=== PATIENT | female | born 1995 | race Two or more races ===

== ENCOUNTER 2016-08-13 20:11 | Emergency (ER) | payer SELFPAY ==
--- NOTE | 2016-08-13 20:22 | ER Document Report ---
ED Medical Screen (RME) - General Stated Complaint: TOE INJURY Notes: patient with toe pain today, able to walk. stubbed it full rom, sensation intact Dp normal I have greeted and performed a rapid initial assessment of this patient. A comprehensive ED assessment and evaluation of the patient, analysis of test results and completion of the medical decision making process will be conducted by additional ED providers. TRAVEL OUTSIDE OF THE [place] IN LAST 30 DAYS: No - Related Data Allergies/Adverse Reactions: No Known Allergies Allergy (Unverified 08/13/16 20:20) Past Medical History - Immunizations Hx Diphtheria, Pertussis, Tetanus Vaccination: No
[2016-08-13] MEDS ORDERED: IBUPROFEN 800 MG TABLET PO ONE (20:23)
--- NOTE | 2016-08-13 22:17 | ER Document Report ---
ED Extremity Problem, Lower - General Chief Complaint: Toe Injury Stated Complaint: TOE INJURY Time seen by provider: 22:16 Mode of Arrival: Ambulatory Information source: Patient TRAVEL OUTSIDE OF THE [place] IN LAST 30 DAYS: No - HPI Patient complains to provider of: Injury Location: Great Toe Occurred: This afternoon Where: Home Onset/Duration: Sudden Quality of pain: Achy Severity: Mild Context: Stubbed Recent injury: Yes Associated symptoms: denies: Fever Exacerbated by: Movement, Walking Relieved by: Rest Notes: Patient states that she stubbed her left great toe on the corner of her ottoman at home earlier today. She states that the nail is purple and she now has pain to this area. She denies any numbness tingling or weakness. She states that it feels significantly better after the ibuprofen she was given in triage. She denies any redness. No fever. She denies any numbness tingling or weakness. She denies any other injuries. Physical complaints at this time. - Related Data Allergies/Adverse Reactions: No Known Allergies Allergy (Unverified 08/13/16 20:20) Past Medical History - Social History Smoking Status: Unknown if Ever Smoked Family History: Reviewed & Not Pertinent Patient has suicidal ideation: No Patient has homicidal ideation: No Renal/ Medical History: Denies: Hx Peritoneal Dialysis - Immunizations Hx Diphtheria, Pertussis, Tetanus Vaccination: No Review of Systems - Review of Systems -: Yes All other systems reviewed and negative Physical Exam - Vital signs Vitals: Temp Pulse Resp BP Pulse Ox 97.7 F 65 16 126/88 H 100 08/13/16 20:20 08/13/16 20:20 08/13/16 20:20 08/13/16 20:20 08/13/16 20:20 Interpretation: Normal - General General appearance: Appears well, Alert - HEENT Head: Normocephalic, Atraumatic Eyes: Normal Pupils: PERRL - Respiratory Respiratory status: No respiratory distress Chest status: Nontender Breath sounds: Normal Chest palpation: Normal - Cardiovascular Rhythm: Regular Heart sounds: Normal auscultation Murmur: No - Extremities General upper extremity: Normal inspection, Nontender, Normal color, Normal ROM , Normal temperature General lower extremity: Normal inspection, Normal color, Normal ROM, Normal temperature, Normal weight bearing, Other - Patient is noted to have a 90% subungual hematoma to the left great toenail. Tenderness to palpation of this area. She has full range of motion of the toe. No significant proximal foot tenderness to palpation. No deformity. No redness. Normal pulse and sensation. Normal capillary refill.. No: Saira's sign - Neurological Neuro grossly intact: Yes Cognition: Normal Orientation: AAOx4 Erick Coma Scale Eye Opening: Spontaneous Hinkle Coma Scale Verbal: Oriented Hinkle Coma Scale Motor: Obeys Commands Erick Coma Scale Total: 15 Speech: Normal Motor strength normal: LUE, RUE, LLE, RLE Sensory: Normal - Psychological Associated symptoms: Normal affect, Normal mood - Skin Skin Temperature: Warm Skin Moisture: Dry Skin Color: Normal Course - Re-evaluation Re-evalutation: 08/13/16 22:36 Patient stubbed her left great toe earlier today. She is noted to have a 90% subungual hematoma to the left great toenail. X-ray shows no fracture. The nail was trephinated and the blood was released from underneath the toenail. The patient tolerated this procedure well. Patient states she is feeling much better after her ibuprofen she was given in triage and declined the prescription for pain medication and go home with. Follow up for increased pain , fever, redness, any further concerns. The patient is noted to have elevated blood pressure during today's emergency department visit. The patient was informed of this finding. The patient was instructed that this may be related to pre-hypertension and requires further evaluation with a primary care provider. The patient has no hypertensive symptoms at this time. - Vital Signs Vital signs: Temp Pulse Resp BP Pulse Ox 97.7 F 65 16 126/88 H 100 08/13/16 20:20 08/13/16 20:20 08/13/16 20:20 08/13/16 20:20 08/13/16 20:20 Procedures - Nail Trephanation/Removal left great toenail Betadine prep applied: Yes Method of Drainage: Nail cauterized Sterile Dressing Applied: Yes Notes: 08/13/16 22:38 Patient tolerated procedure well with no immediate complications. Discharge - Discharge Clinical Impression: Subungual hematoma of great toe of left foot Qualifiers: Encounter type: initial encounter Qualified Code(s): S90.212A - Contusion of left great toe with damage to nail, initial encounter Condition: Stable Disposition: HOME, SELF-CARE Instructions: Subungual Hematoma ([facility]) Additional Instructions: Tylenol and Motrin as needed. Your toenail will likely fall off. Follow-up for increased pain, fever, redness, drainage, or any further concerns. Your blood pressure was elevated during today's visit. Have this rechecked with your doctor. Forms: Elevated Blood Pressure, Return to Work
[2016-08-13 22:44] VITALS: BP 120/80
== END 2016-08-13 22:44 | disposition home or self-care (01) ==
LOC: ER 20:11
PROC: 0H9RXZZ Drainage of Toe Nail, External Approach (ICD-10-PCS; principal; 2016-08-13)
DX: S90.212A Contusion of left great toe with damage to nail, initial encounter (principal); W22.03XA Walked into furniture, initial encounter; Y92.009 Unspecified place in unspecified non-institutional (private) residence as the place of occurrence of the external cause
CPT/HCPCS: 99283

== ENCOUNTER 2016-10-13 11:34 | Emergency (ER) | payer MEDICAID ==
--- NOTE | 2016-10-13 12:32 | ER Document Report ---
ED Medical Screen (RME) - General Chief Complaint: Vaginal Bleeding Stated Complaint: VAGINAL BLEEDING Notes: 21-year-old female about 9 weeks with onset about 11:30 this morning of some dark vaginal bleeding. This was preceded by some cramping in the vaginal rectal area. A1 I have greeted and performed a rapid initial assessment of this patient. A comprehensive ED assessment and evaluation of the patient, analysis of test results and completion of the medical decision making process will be conducted by additional ED providers. TRAVEL OUTSIDE OF THE [place] IN LAST 30 DAYS: No - Related Data Allergies/Adverse Reactions: No Known Allergies Allergy (Verified 10/13/16 11:39) Past Medical History Renal/ Medical History: Denies: Hx Peritoneal Dialysis - Immunizations Hx Diphtheria, Pertussis, Tetanus Vaccination: No Physical Exam - Vital signs Vitals: Temp Pulse Resp BP Pulse Ox 98.5 F 87 16 114/71 99 10/13/16 11:40 10/13/16 11:40 10/13/16 11:40 10/13/16 11:40 10/13/16 11:40 Course - Vital Signs Vital signs: Temp Pulse Resp BP Pulse Ox 98.5 F 87 16 114/71 99 10/13/16 11:40 10/13/16 11:40 10/13/16 11:40 10/13/16 11:40 10/13/16 11:40
[2016-10-13 13:02] LABS: ABSOLUTE EOSINOPHILS # (AUTO) 0.1 10^3/uL (0.0-0.6); ABSOLUTE LYMPHOCYTES (AUTO) 1.5 10^3/uL (0.5-4.7); ABSOLUTE MONOCYTES (AUTO) 0.6 10^3/uL (0.1-1.4); ABSOLUTE NEUT (AUTO) 5.5 10^3/uL (1.7-8.2); BASOPHILS % (AUTO) 0.3 % (0-2); EOSINOPHILS % (AUTO) 1.2 % (0-6); HEMOGLOBIN 11.2 g/dL (12.0-15.5); HGB HCT DIFFERENCE -0.4; MEAN CORPUSCULAR HEMOGLOBIN 25.7 pg (27.0-33.4); MEAN CORPUSCULAR VOLUME 78 fl (80-97); MONOCYTES % (AUTO) 7.2 % (3-13); RED BLOOD COUNT 4.37 10^6/uL (3.72-5.28); RED CELL DISTRIBUTION WIDTH 15.7 % (11.5-14.0); SEGMENTED NEUTROPHILS % (AUTO) 71.3 % (42-78); WHITE BLOOD COUNT 7.7 10^3/uL (4.0-10.5)
[2016-10-13 13:09] LABS: APPEARANCE,URINE SLIGHTLY-CLOUDY; BILIRUBIN,URINE NEGATIVE (NEGATIVE); GLUCOSE, URINE NEGATIVE (NEGATIVE); KETONES,URINE NEGATIVE (NEGATIVE); LEUKOCYTE ESTERASE,URINE TRACE (NEGATIVE); NITRITE,URINE NEGATIVE (NEGATIVE); PROTEIN,URINE NEGATIVE (NEGATIVE); URINE SPECIFIC GRAVITY 1.025; UROBILINOGEN,URINE NEGATIVE mg/dL (<2.0)
--- NOTE | 2016-10-13 15:09 | ER Document Report ---
ED GI/ - General Mode of Arrival: Ambulatory Information source: Patient TRAVEL OUTSIDE OF THE [place] IN LAST 30 DAYS: No - HPI Patient complains to provider of: , Vaginal bleeding Quality of pain: No pain Pain Level: 0 <TINO RAGLAND - Last Filed: 10/13/16 15:41> <ANGEL GIRALDO - Last Filed: 10/13/16 21:51> - General Chief Complaint: Vaginal Bleeding Stated Complaint: VAGINAL BLEEDING Notes: Patient is a 21-year-old female that presents to the emergency department today with complaints of vaginal bleeding. Patient states she is approximately 9 weeks , A1. Patient states that she is being followed by the health department for this , she has not yet been referred out. Patient states she has not had recent sexual intercourse. Patient is taking vitamins. Patient denies any abdominal cramping, urinary symptoms, vaginal discharge, or abdominal pain. (TINO RAGLAND) - Related Data Allergies/Adverse Reactions: No Known Allergies Allergy (Verified 10/13/16 11:39) Past Medical History - General Information source: Patient Last Menstrual Period: 08-17-16 - Social History Smoking Status: Never Smoker Cigarette use (# per day): No Frequency of alcohol use: None Drug Abuse: None Lives with: Family Family History: Reviewed & Not Pertinent Patient has suicidal ideation: No Patient has homicidal ideation: No Pulmonary Medical History: Reports: Hx Asthma Past Surgical History: Reports: Hx Appendectomy, Hx Myringotomy - Immunizations Hx Diphtheria, Pertussis, Tetanus Vaccination: No <TINO RAGLAND - Last Filed: 10/13/16 15:41> Review of Systems - Review of Systems Constitutional: No symptoms reported EENT: No symptoms reported Cardiovascular: No symptoms reported Respiratory: No symptoms reported Gastrointestinal: denies: Abdominal pain Genitourinary: No symptoms reported Female Genitourinary: See HPI, , Vaginal bleeding. denies: Vaginal discharge Musculoskeletal: No symptoms reported Skin: No symptoms reported Hematologic/Lymphatic: No symptoms reported Neurological/Psychological: No symptoms reported -: Yes All other systems reviewed and negative <TINO RAGLAND - Last Filed: 10/13/16 15:41> Physical Exam <TINO RAGLAND - Last Filed: 10/13/16 15:41> <ANGEL GIRALDO - Last Filed: 10/13/16 21:51> - Vital signs Vitals: Temp Pulse Resp BP Pulse Ox 98.5 F 87 16 114/71 99 10/13/16 11:40 10/13/16 11:40 10/13/16 11:40 10/13/16 11:40 10/13/16 11:40 - Notes Notes: Physical Exam: General: Alert, appears well. HEENT: Normocephalic. Atraumatic. PERRL. Extraocular movements intact. Oropharynx clear. Neck: Supple. Non-tender. Respiratory: No respiratory distress. Clear and equal breath sounds bilaterally. Cardiovascular: Regular rate and rhythm. Abdominal: Mild suprapubic tenderness with palpation. No distension. Normal Bowel Sounds. Back: Non-tender. No deformity or step off. Extremities: Moves all four extremities. Upper extremities: Normal inspection. Normal color. Normal ROM. Lower extremities: Normal inspection. No edema. Normal color. Normal ROM. Neurological: Normal cognition. AAOx4. Normal speech. Psychological: Normal affect. Normal Mood. Skin: Warm. Dry. Normal color. (TINO RAGLAND) - Genitourinary Notes: Patient deferred (ANGEL GIRALDO) Course - Laboratory Result Diagrams: 10/13/16 12:35 <TINO RAGLAND - Last Filed: 10/13/16 15:41> - Laboratory Result Diagrams: 10/13/16 12:35 - Diagnostic Test Radiology reviewed: Image reviewed, Reports reviewed <ANGEL GIRALDO - Last Filed: 10/13/16 21:51> - Re-evaluation Re-evalutation: 10/13/16 Patient is a 21-year-old female who comes in for some vaginal bleeding. She did not want to do a pelvic exam here. No further bleeding or spotting. No cramping. Ultrasound showing a intrauterine and some ovarian cyst. Patient states she is a history of ovarian cysts. Vitals are stable. Patient is O+. Patient is currently taking a vitamin. Patient is instructed to follow-up with the health department or an MANAGER CLIENT. She has an appointment on Wednesday. Stable for discharge. Return if any worsening or concerning symptoms. (ANGEL GIRALDO) - Vital Signs Vital signs: Temp Pulse Resp BP Pulse Ox 97.9 F 70 20 107/61 100 10/13/16 16:37 10/13/16 16:37 10/13/16 16:37 10/13/16 16:37 10/13/16 16:37 - Laboratory Laboratory results interpreted by me: 10/13/16 10/13/16 10/13/16 12:35 12:35 12:35 Hgb 11.2 L Hct 34.0 L MCV 78 L MCH 25.7 L RDW 15.7 H Beta HCG, Quant 84491.00 H Urine Blood LARGE H Ur Leukocyte Esterase TRACE H Discharge <TINO RAGLAND - Last Filed: 10/13/16 15:41> <ANGEL GIRALDO - Last Filed: 10/13/16 21:51> - Discharge Clinical Impression: Bleeding in early Qualifiers: Weeks of gestation: 8 weeks Qualified Code(s): Z3A.08 - 8 weeks gestation of Anemia Qualifiers: Anemia type: unspecified type Qualified Code(s): D64.9 - Anemia, unspecified Condition: Stable Disposition: HOME, SELF-CARE Instructions: ([facility]), Bleeding During Early ([facility]) Referrals: [facility] [Provider Group] - Follow up in 3-5 days Scribe Attestation: 10/13/16 21:51 I personally performed the services described in the documentation, reviewed and edited the documentation which was dictated to the scribe in my presence, and it accurately records my words and actions. (ANGEL GIRALDO) Scribe Documentation - Scribe Written by Scribe:: Alexandro Jaimes, 10/13/2016 1514 acting as scribe for :: Abad <TINO RAGLAND - Last Filed: 10/13/16 15:41>
[2016-10-13 16:41] VITALS: BP 107/61
== END 2016-10-13 16:41 | disposition home or self-care (01) ==
LOC: ER 11:34
DX: O20.9 Hemorrhage in early pregnancy, unspecified (principal); D64.9 Anemia, unspecified; Z3A.08 8 weeks gestation of pregnancy
CPT/HCPCS: 36415; 76817; 81001; 84702; 85025; 86900; 86901; 87086; 99284